=== PATIENT | female | born 1990 | race Caucasian/White ===

== ENCOUNTER 2016-09-29 17:44 | Emergency (ER) | payer OTHER ==
[~2016-09-29] VITALS: Ht 167.6 cm; Wt 81.8 kg
[~2016-09-29 17:44] MED LIST: IBUP400T18 PO
[2016-09-29 17:54] VITALS: BP 120/76
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
[2016-09-29] MEDS ORDERED: NAPROXEN 500 MG TABLET PO ONE (19:00)
--- NOTE | 2016-09-30 09:19 | RAD ---
Left knee with patella, 4 views, 09/29/2016: History: Fall, knee swelling, pain No fracture or dislocation is identified. There is a suggestion of a small knee joint effusion. IMPRESSION: No acute bony abnormality is detected.
== END 2016-09-29 19:00 | disposition home or self-care (01) ==
LOC: ER 17:44
DX: M25.562 Pain in left knee (principal); F17.200 Nicotine dependence, unspecified, uncomplicated; W01.198A Fall on same level from slipping, tripping and stumbling with subsequent striking against other object, initial encounter; Y93.01 Activity, walking, marching and hiking; Y99.8 Other external cause status; Y92.89 Other specified places as the place of occurrence of the external cause
CPT/HCPCS: 73564; 99284